=== PATIENT | male | born 1975 | race Caucasian/White ===

== ENCOUNTER 2018-03-28 17:30 | Emergency (ER) | payer MEDICARE, OTHER ==
[~2018-03-28] VITALS: Ht 182.9 cm; Wt 105.7 kg
[~2018-03-28 17:30] MED LIST: IBUPROFEN600 MG PO; TYLENOL WITH C1 EACH PO
[2018-03-28] MEDS ORDERED: DIAZEPAM 5 MG TAB PO STA (20:05)
[2018-03-28] MEDS ORDERED: KETOROLAC TROMETHAMINE 60 MG/2 ML VIAL IM ONE (20:15)
[2018-03-28] MEDS ORDERED: PREDNISONE 20 MG TAB PO ONE (20:15)
[2018-03-28] MEDS ORDERED: PREDNISONE20 MG PO (20:58)
[2018-03-28] MEDS ORDERED: VALIUM2 MG PO (20:58)
--- NOTE | 2018-03-28 21:07 | Diagnostic Imaging Report ---
Lumbar Spine Radiographs: 5 views HISTORY: Lower back pain. COMPARISON: None available. DISCUSSION: Some of the osseous structures are partially obscured by stool and bowel gas. L4-S1 fixation with osseous screws at L4, L5, and S1. No evidence of hardware fracture or loosening. There are five non-rib bearing lumbar vertebral bodies. 5 mm retrolisthesis of L2 on L3. No displaced fracture or compression deformity is identified. Disc Spaces: The disc spaces are well maintained. Facets: Facet arthrosis L4-S1. IMPRESSION: No acute radiographic abnormality. Signed by: DR. Olegario Evans MD on 03/28/2018 9:04 PM
== END 2018-03-28 21:25 | disposition home or self-care (01) ==
LOC: ER 17:30
DX: M54.5 Low back pain (principal); S39.012A Strain of muscle, fascia and tendon of lower back, initial encounter; X50.1XXA Overexertion from prolonged static or awkward postures, initial encounter; Y92.008 Other place in unspecified non-institutional (private) residence as the place of occurrence of the external cause; I10 Essential (primary) hypertension
CPT/HCPCS: 72110; 99283; J1885; J7512